=== PATIENT | female | born 1970 | race Caucasian/White ===

== ENCOUNTER 2025-01-25 08:50 | Outpatient (CLI) | payer OTHER, SELFPAY | END 2025-01-25 08:51 | disposition home or self-care (01) | LOC: NFLDUCREF 08:51 | PROVIDERS: Visit Provider Nurse Practitioner Family | DX: R21 Rash and other nonspecific skin eruption (principal); R53.83 Other fatigue | CPT/HCPCS: 86618 ==

== ENCOUNTER 2025-03-11 07:30 | Outpatient (RCR) | payer OTHER, SELFPAY | END 2025-07-09 23:59 | disposition home or self-care (01) | PROVIDERS: Visit Provider Nurse Practitioner | DX: M54.50 Low back pain, unspecified (principal); Z51.89 Encounter for other specified aftercare | CPT/HCPCS: 97110; 97140; 97162 ==

== ENCOUNTER 2025-07-19 09:45 | Emergency (ER) | payer OTHER, SELFPAY ==
--- OUTSIDE RECORDS SUMMARY | 2024-08-01 09:15 | XMS_ITS ---
Author Organization [facility] Address [address] [place] [address] Care Team Providers Care Assistant Grocery Name Role Phone None, No PCP Primary Care Provider Josi Gil [phone] REASON FOR VISIT HRT F/U Encounters Encounter Location Date Provider Diagnosis [facility] [address] [place] [address] 08/01/2024 Josi Arnold Plan Of Treatment No Information Progress Notes * Radha CASTANEDA DDOB: [birth year] (55 yo F)Acc No.[id number]:08/01/2024 Patient:?AURELIANO Radha Almendarez :?Josi Arnold, DODOB:1970???Age:54 Y???Sex: FemaleDate:08/01/2024Phone:[phone]:[address] [place], [place] [address]Pcp:No PCP None Subjective: * Chief Complaints: * 1 . HRT F/U. * Medical History: Objective: * Vitals: Assessment: Plan: * Treatment: * Images: Billing Information: * Visit Code: * Procedure Codes: * Electronic signature of Josi Arnold DO on 07/19/2025 at 09:46 AM CSTSign off status: Pending * Provider: Trudi Arnold DO Date: 0 08/01/2024 Generated for Printing/Faxing/eTransmitting on:?07/19/2025 09:46 AM FILTER CLOTH MAKER
--- OUTSIDE RECORDS SUMMARY | 2025-02-04 09:30 | XMS_ITS ---
Author Organization [facility] Address [address] [place] [address] Care Team Providers Care Insurance Premium Auditor Name Role Phone None, No PCP Primary Care Provider Josi Gil [phone] REASON FOR VISIT HRT Encounters Encounter Location Date Provider Diagnosis [facility] [address] [place] [address] 02/04/2025 Josi Arnold Plan Of Treatment No Information Progress Notes * Radha BEDOYA DDOB: [birth year] (55 yo F)Acc No.[id number]:02/04/2025 Patient:?Ivett BEDOYAh Erickson :?Josi Arnold, DODOB:1970???Age:54 Y???Sex: FemaleDate:02/04/2025Phone:[phone]:[address] [place] [address]Pcp:No PCP None Subjective: * Chief Complaints: * 1 . HRT. * Medical History: Objective: * Vitals: Assessment: Plan: * Treatment: * Images: Billing Information: * Visit Code: * Procedure Codes: * Electronic signature of Josi Arnold DO on 07/19/2025 at 09:47 AM CSTSign off status: Pending * Provider: Trudi Arnold DO Date: 0 02/04/2025 Generated for Printing/Faxing/eTransmitting on:?07/19/2025 09:47 AM TELEGRAPHIC TYPEWRITER OPERATOR
--- OUTSIDE RECORDS SUMMARY | 2025-03-25 09:30 | XMS_ITS ---
Author Organization [facility] Address [address] [place] [address] Care Team Providers Care Hospice Home Care Coordinator Name Role Phone None, No PCP Primary Care Provider Josi Gil [phone] Encounters Encounter Location Date Provider Diagnosis [facility] [address] [place] [address] 03/25/2025 Josi Arnold Plan Of Treatment No Information Progress Notes * Radha CASTANEDA DDOB: [birth year] (55 yo F)Acc No.[id number]:03/25/2025 Patient:?Ric CASTANEDAvero Almendarez :?Josi Arnold, DODOB:1970???Age:55 Y???Sex: FemaleDate:03/25/2025Phone:[phone]:[address] [place], [place] [address]Pcp:No PCP None Subjective: * Chief Complaints: * * Medical History: Objective: * Vitals: Assessment: Plan: * Treatment: * Images: Billing Information: * Visit Code: * Procedure Codes: * Electronic signature of Josi Arnold DO on 07/19/2025 at 09:46 AM CSTSign off status: Pending * Provider: Trudi Arnold DO Date: 0 03/25/2025 Generated for Printing/Faxing/eTransmitting on:?07/19/2025 09:46 AM CUSTODY OFFICER
--- OUTSIDE RECORDS SUMMARY | 2025-04-01 09:30 | XMS_ITS ---
Author Organization [facility] Address [address] [place] [address] Care Team Providers Care Furnace Filler Name Role Phone None, No PCP Primary Care Provider Josi Gil [phone] Encounters Encounter Location Date Provider Diagnosis [facility] [place] [address] [place] [address] 04/01/2025 Josi Arnold Plan Of Treatment No Information Progress Notes * Radha CASTANEDA DDOB: [birth year] (55 yo F)Acc No.[id number]:04/01/2025 Patient:?Ric CASTANEDAvero Almendarez :?Josi Arnold, DODOB:1970???Age:55 Y???Sex: FemaleDate:04/01/2025Phone:[phone]:[address] [place] [address]Pcp:No PCP None Subjective: * Chief Complaints: * * Medical History: Objective: * Vitals: Assessment: Plan: * Treatment: * Images: Billing Information: * Visit Code: * Procedure Codes: * Electronic signature of Josi Arnold DO on 07/19/2025 at 09:46 AM CSTSign off status: Pending * Provider: Trudi Arnold DO Date: 0 04/01/2025 Generated for Printing/Faxing/eTransmitting on:?07/19/2025 09:46 AM ELECTRIFICATION ADVISER
--- OUTSIDE RECORDS SUMMARY | 2025-07-19 09:46 | XMS_ITS | Patient Health Record ---
Author Organization [facility] Address [address] [place] [address] Care Team Providers Care Picker Tender Name Role Phone None, No PCP Primary Care Provider Unavailabl e Eul, Josi Unavailable [phone] Allergies Allergen (clinical drug ingredient) Drug/Non Drug Allergy documented on EMR Reaction Allergy Type Onset Date Status levofloxacin Levofloxacin Unknown Drug Allergy Active Results Component Value Reference Range Notes Testosterone, Total (IH) Reviewed date:04/08/2025 01:09:11 PM Interpretation: Performing Lab: Notes/Report: Access 2 ([id number]), [facility] - Lab Testo 40 0-75 ng/dL Sensitive Estradiol (IH) Reviewed date:07/28/2024 09:24:39 AM Interpretation: Performing Lab: Notes/Report: Access 2 ([id number]), [facility] - PvvSZCL71973 to 433 pg/mLTestosterone, Total (IH) Reviewed date:07/28/2024 09:24:39 AM Interpretation: Performing Lab: Notes/Report: Access 2 ([id number]), [facility] - RgjLzcos335-18 ng/dLFSH (IH) Reviewed date:07/28/2024 09:24:39 AM Interpretation: Performing Lab: Notes/Report: Access 2 ([id number]), [facility] - InruHVB07.21.8 to 22.5 mIU/mL Reason For Referral Reason depression with inte rmittent suicidal ideation Diagnosis 1 Depression (F32.9) Referral Organization [facility] Referring Provider First Name Josi Referring Provider Last Name Eul Referring Provider Speciality Obstetrici an and wash driller Referred Provider Specialty Psychiatry Referral Priority Routine Medications Medication SIG (Take, Route, Frequency, Duration) Notes Start Date End Date Status FLUoxetine HCl 20 MG Oral; Duration: 90 Days ActiveFish OilNot-TakingTestosterone1/2 4mg trocheActiveEstradiol 1 MG0.5 tablet Orally twice a day; Duration: 90 days4068FtglovDmupuwb8he changing every 4 monthsActive Social History Tobacco Use: Social History Observation Description Date Details (start date - stop date) Never Smoker NA - NA Tobacco Control (Standard) Question Answer Notes Tobacco use: Nonsmoker Problems Problem Type SNOMED Code ICD Code Onset Dates Problem Status W/U Status Risk Notes Problem Menopause (094899468) Menopausal and fema le climacteric states (N95.1) ActiveconfirmedProblemDepression (999518583)Depression (F32.9)Activeconfirmed ProblemEndometriosis (931949666)Endometriosis (N80.9)ActiveconfirmedProblem Menopausal symptom (56135796)Menopausal symptoms (N95.1)ActiveconfirmedProblem Menopausal and postmenopausal disorder (N95.9)ActiveconfirmedProblemBlood chemistry abnormal (956183320)Low testosterone level in female (R79.89)Active confirmed Vital Signs Blood pressure diastolic 70 mm Hg 04/17/2025 Txjeia41 in04/17/2025lood pressure jqztzqsy162 mm Hg04/17/20251546Elhzlf660.6 lbs 04/17/2025BMI22.06 kg/m204/17/2025 Encounters Encounter Location Date Provider Diagnosis [address] [address] 02/16/2025 Josi Eul Menopausal symptoms N95.1 and Low testosterone level in female R79.[address] [id number] 04/02/2025 Josi Eul Menopausal and femal e climacteric states N95.[address] [id number] 07/24/2024 Josi Eul Menopausal and postmenopausal disorder N95.9 and Abnormal level of female sex hormones R87.[address] [place] [address] 08/06/2024 Josi Eul Menopausal symptoms N95.1 [facility] [address] [place] [address] 04/17/2025 Josi Eul Menopausal symptoms N95.1 ; Low testosterone level in female R79.89 and Depression F32.9 [facility] [address] [place] [address] 02/11/2025 Josi Eul [facility] [address] [place] [address] 5[facility]a [facility] [address] [place] [address]/5Alexa EulMinnesPage [facility] [address] [place] [address]/5Alexa EulMinHospital Corporation of America Apple [address] [place] [address]/5Alexa Eul [facility] [place] [address] 11/12/2024lexa [facility]uinCritical [facility] hospital[address] [place] [address]/5Alexa Eul Assessments Encounter Date Diagnosis (ICD Code) Assessment Notes Treatment Notes Treatment Clinical Notes Section Notes 08/06/2024 Menopausal symptoms (ICD-10 - N9 5.1) Doing very well with therapy Will refill testosterone for 6 months, do labs and follow up for continued T therapy at that time 04/02/2025Menopausal and female climacteric states (ICD-10 - N95.1)04/17/2025 Menopausal symptoms (ICD-10 - N95.1)04/17/2025Low testosterone level in female (ICD-10 - R79.89)Increase testosterone carin to 4 mg daily - Continue estrogen ring, replacing every 3 months instead of 4 to avoid potential hormone surges - Monitor for recurrence of symptoms with next estrogen ring change - If symptoms recur, consider switching to vaginal estrogen cream for more consistent delivery - Continue Prozac 20 mg daily for mood stabilization - Renew testosterone prescription at [facility] - Follow up in 6 months for lab draw to monitor testosterone therapy - Patient educated on potential need for psychiatric evaluation if symptoms persist or scxhgi2602/16/2025Menopausal symptoms (ICD-10 - N95.1) Doing well with estradiol 1mg, continue therapy NO uterus, does not need progesterone 02/16/2025Low testosterone level in female (ICD-10 - R79.89) Will try testosterone troches instead, in case she was reacting to a component of the cream substrate Will order 4mg troches, with instructions to start with 1/2 a acrin for a 2mg dose Rx sent to [facility] Recheck lab in 6 weeks with 1 week follow up after 30 minutes spent on chart review, in face to face time with patient, documentation of above and coordination of care. 07/24/2024Menopausal and postmenopausal disorder (ICD-10 - N95.9)07/24/2024 Abnormal level of female sex hormones (ICD-10 - R87.1)04/17/2025Depression (ICD- 10 - F32.9)- Prescribe short-term Ativan for acute anxiety episodes if needed - Advise patient to call if experiencing onset of anxiety symptoms - Recommend establishing care with a psychiatrist for ongoing management of acute anxiety episodes - Provide referral to [facility] for psychiatric syneqellgj35/19/2025 Other Thank you for meeting with me today. Below is a summary of the items we discussed and the next steps in your care plan. 1. Increase testosterone carin to 4 mg daily and continue taking Prozac 20 mg daily. Do not stop or change testosterone dose when changing estrogen ring. 2. Replace estrogen ring every 3 months instead of 4 months. Consider switching to vaginal estrogencream if symptoms persist with ring changes. 3. A referral will be sent to [facility] for a psychiatrist. Call when they contact you to find a location close to you. 4. Return in 6 months for lab work to check testosterone levels. 5. If anxiety symptoms return and you don't have Ativan, call the office. Best Regards, Josi Arnold DO 08/06/2024OtherPt expressed that prior to starting therapy she was experiencing suicidal thoughts. She is feeling much better now. Discussed with her that at any time if she wants to make an appointment to further discuss her mental health I am here for her, and to never be ashamed or embarassed to seek help. Plan Of Treatment No Information Insurance Providers Payer Name Payer Address Payer Phone Subscriber Number Group Number Insured Name Patient Relationship to Insured Coverage Start Date Coverage End Date Savannah Arias (Ins. Bill) Claims Departme [address] [place] [address] [id number] Wang Castanedaelf - patient is the insured Medical (General) History Medical History History ICD Code Chicken Pox Surgical History Surgery Date(Month/Year) Tonsillectomy Breast Augmentation 2xUPJ RepairKidney Stone HndxcjuNjxxhmclsdhl5531Fpojiislkvlq 2012
--- OUTSIDE RECORDS SUMMARY | 2025-07-19 09:47 | XMS_ITS | Clinical Summary ---
Author Organization [facility] Address [address] [address] Phone Care Team Providers Care Photographic Reproduction Technician Name Role Phone Unavailable Primary Care Provider Unavailabl e Medications MedicationSigDispense QuantityRefillsLast FilledStart DateEnd DateStatus hydrOXYzine pamoate (Vistaril) 25 MG capsule Take 1-2 Capsules by mouth three times a day as needed for Itching or Anxiety. 20 Capsule 5Active Social History Tobacco UseTypesPacks/DayYears UsedDateSmoking Tobacco: Never AssessedEH IP Custom IPVAnswerDate RecordedDo you feel UNSAFE in any of your personal relationships with your family members or any other acquaintances?No03/22/2025 CommentsUnknownSex and Gender InformationValueDate RecordedSex Assigned at BirthNot on fileLegal IlfLardlc72/24/2025 8:06 AM CDTGender IdentityNot on fileSexual OrientationNot on file Last Filed Vital Signs Vital SignReadingTime TakenCommentsBlood Hdpowwyz651/6808 10:03 AM CDT Nlayl047603/22/2025 10:03 AM EEQKhmglbiaufd94.8 ??C (98.2 ??F)03/22/2025 10:03 AM CDTRespiratory Qblo743103/22/2025 10:03 AM CDTOxygen Kwiqvlyyxz47%03/22/2025 10:03 AM CDTInhaled Oxygen Concentration--Weight--Height--Body Mass Index-- Plan of Treatment Health MaintenanceDue DateLast DoneCommentsCT Swkcuoazgcth1971Cervical Cancer Fyreaodpt53/09/8989Yuvqmytzf23/09/6817Edrwucxamum1971Last pap w/ HPV Hpxxqre49 1971Last pap w/o HPV Iaflwar67 1971MAMMO,WOUTNR27 1970 Zjuujzbllbtfu1971Hepatitis B Vaccine (Standing Order) (1 of 3 - 19+ 3-dose series)1990PERTUSSIS (Standing Order)1990TETANUS (Standing Order) 1990Pneumococcal Vaccine: 50+ yrs (Standing Order) (1 of 1 - PCV) 2021hingrix (Zoster recombinant) vaccine (Standing Order) (1 of 2) 2021OVID-19 Vaccine (1 - 2024- season)2025Influenza Vaccine Seasonal (Standing Order) (#1)5Colorectal Cancer Screening (consider Cologuard where access is limited)03/22/2026FIT/FOBTHPV Vaccine (Standing Order) (No Doses Required)Completed Procedures Procedure NamePriorityDate/TimeAssociated DiagnosisCommentsFECAL OCCULT BLOOD, IMMUNOASSAY (GI BLEED)STAT03/22/2025 9:06 AM CDT from Last 3 Months or Most Recently Relevant to Health Maintenance Results * FECAL OCCULT BLOOD, IMMUNOASSAY (GI BLEED) (03/22/2025 9:06 AM CDT)Component ValueRef RangeTest MethodAnalysis TimePerformed AtPathologist SignatureFecal Occult Blood, WebxtkowkpkRbmxxhvxCgjkntzo53/24/2025 9:19 AM CDTECASA COLINA HOSPITAL FOR RE[facility]AB MEDICINE LABORATORYSpecimen (Source)Anatomical Location / LateralityCollection Method / VolumeCollection TimeReceived TimeStoolFECES / UnknownNon-blood collection / Xuvxzlh2903/22/2025 9:06 AM CDT03/22/2025 9:11 AM CDT Narrative Authorizing ProviderResult TypeResult StatusAlltanna DIAZ URINE ORDERABLESFinal ResultPerforming OrganizationAddressCity/State/[place] [address], [facility] from Last 3 Months or Most Recently Relevant to Health Maintenance Insurance
--- OUTSIDE RECORDS SUMMARY | 2025-07-19 09:47 | XMS_ITS | Clinical Summary ---
Author Organization [facility] Address [address] [place] [address] Care Team Providers Care Reducing Machine Operator Name Role Phone Elsewhere, Pcp Primary Care Provider Unavailabl e Source Comments Patient records contain information from all sites at [facility]. For routine questions regarding patient records, call [phone] during business hours, M-F 8:00 AM - 5:00 PM Central Time. Record requests for emergency care only can be directed to [phone] at any time.[facility] Allergies Active AllergyReactionsCriticalityNoted DateCommentsLevofloxacinEdema (Reselect Reaction)06/11/2018 Medications MedicationSigDispense QuantityRefillsLast FilledStart DateEnd DateStatus estradioL (ESTRING) 2 mg (7.5 mcg /24 hour) vaginal ring 03/11/2015ctive azelaic acid (Finacea) 15 % gel 1 Application.5Active Immunizations ImmunizationAdministration DatesNext DueInfluenza, Injectable, Quadrivalent 07/29/2018RZV (SHINGRIX)07/13/2021,05/04/20218329PLNY-MCX-2 (COVID-19) - PFIZER (Discontinued)(12 years or older)11/19/2020,10/30/2020Td (Adult), adsorbed 12/08/1988influenza vaccine quad (FLUZONE/FLUARIX) (6 months and older)(PF) 06/03/2021,05/18/2020,05/06/2019 Social History Tobacco UseTypesPacks/DayYears UsedDateSmoking Tobacco: FormerSmokeless Tobacco: Never Tobacco Cessation:Counseling Given: Not Answered CommentsNoSex and Gender InformationValueDate RecordedSex Assigned at BirthNot on fileLegal UfiJadlaw33/14/2017 9:53 AM CDTGender IdentityNot on file Sexual OrientationNot on file Last Filed Vital Signs Vital SignReadingTime TakenCommentsBlood Tnfioube470/6904 8:33 AM CDT Owkyd2582 8:33 AM IJGKfkamyiazcv36.1 ??C (96.9 ??F)10/31/2024 8:33 AM CDTRespiratory Zust460603/14/2021 2:04 PM CDTOxygen Xgrszrorwn31%02/27/2023 8:41 AM CDTInhaled Oxygen Concentration--Hljzdw55.6 kg (129 lb 3 oz)10/31/2024 8:33 AM JGMVsucjr946 cm (5' 5.35)02/27/2023 8:41 AM CDTBody Mass Index21.27 02/27/2023 8:41 AM CDT Plan of Treatment Health MaintenanceDue DateLast DoneCommentsCT Boitsvssssnp1971 Cervical/Vaginal Cancer Hbizpyaqa37/09/6764Qzwpnnadk45/09/4743XII01 1970HIV Phfvwkwyh1971Hepatitis C Yoenwlrnq36/09/5986Zkyqwgwuj1971Hepatitis B Vaccines (1 of 3 - 19+ 3-dose series)1990Pneumococcal vaccine (50+ years) (1 of 1 - PCV)2021epression Screening (Annual PHQ-2)5COVID-19 Vaccine ( - season)501/05/2022, 11/19/2020, 10/30/2020 Influenza Vaccine (#1)501/12/2022, 06/03/2021, 05/18/2020, Additional history existsFasting Glucose for Diabetes Mfremidmr96Lipid (Cholesterol) Txxiwkyoy51/3841Vzgsjgdmyvf98 Colorectal Cancer Aaamzydui74/28/2032DTaP,Tdap,and Td Vaccines (3 - Td or Tdap) /12/2022, 12/08/1988Zoster EhfhcmajGrujopfeo64/15/2021, 05/04/2021 IPV VaccinesAged OutNo longer eligible based on patient's age to complete this topic Insurance Care Teams Team MemberRelationshipSpecialtyStart DateEnd Date Elsewhere, Pcp PCP - GeneralFamily Medicine03/13/18
--- OUTSIDE RECORDS SUMMARY | 2025-07-19 09:47 | XMS_ITS | Clinical Summary ---
Author Organization [employer] [facility] Address [address] [place] [id number] Care Team Providers Care Supervisor Power Reactor Name Role Phone BreOctober Primary Care Provider [phone] Allergies Active AllergyReactionsCriticalityNoted IzyeOtkxprizVxdvspastilnPdtol89/13/2018 Medications MedicationSigDispense QuantityRefillsLast FilledStart DateEnd DateStatus acetaZOLAMIDE (DIAMOX) 125 mg tablet Indications:Mountain sickness, initial encounterTake 125 mg by mouth two times daily. Begin medication the day before ascent and continue while at the higher elevation. May discontinue on descent to lower altitude 30 Tablet 02/27/2024ctive Estradiol Vaginal (Estring) 2 mg (7.5 mcg /24 hour) vaginal ring Indications:Vaginal atrophyInsert 1 Ring into the vagina every 3 months. 1 Each ctive Active Problems ProblemNoted DateDiagnosed DateNight yrhkil0909/12/2023Hot iaqbukp8609/12/2023 Vaginal ysjjtmg9309/12/20231489Piqekzc87/14/2024Family history of cancer in sister 09/12/2023 Resolved Problems ProblemNoted DateDiagnosed DateResolved DateUnspecified adjustment reaction Immunizations ImmunizationAdministration DatesNext DueInfluenza, ZSC61908/04/2022,06/03/2021, 05/18/2020,05/06/2019Influejulián, IIV4 (=>6mos) MDV1Td (Age >=7 Years) 12/08/1988Tdap08/04/2022,02/14/2013Zoster (Shingrix-RZV, recombinant)07/13/2021, 05/04/2021 Family History Medical HistoryRelationNameCommentsAlcoholismBrotherDepressionBrotherAlcoholism FatherNo Known ProblemsMotherNo Known ProblemsSonAnesthesia Malignant HyperthermiaNo Family HistoryCancer-breastNo Family HistoryCancer-ovarianNo Family HistoryRelationNameStatusCommentsBrotherAliveFatherAlivenot in contact MotherAliveSisterAliveSonAlive Social History Tobacco UseTypesPacks/DayYears UsedDateSmoking Tobacco: OoiiocYqshwiflsl6Txfv: 07/30/1991Smokeless Tobacco: Never Tobacco Cessation:Counseling Given: Yes Alcohol UseStandard Drinks/WeekCommentsYes0 (1 standard drink = 0.6 oz pure alcohol)daily-12 drinks per weekPHQ-2AnswerDate RecordedPHQ-2 TOTAL SCORE0 08/04/2022Social ConnectionsAnswerDate RecordedDo you often feel lonely or isolated from those around you?Financial Resource StrainAnswerDate RecordedDifficulty of Paying Living Cxyendql242ifficulty of Paying Living ExpensesNot on file09/10/2023Food InsecurityAnswerDate RecordedDo you worry your food will run out before you are able to buy more? 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 on fileNot on fileNot on file Last Filed Vital Signs Vital SignReadingTime TakenCommentsBlood Dwauwzdi43/6907 11:02 AM CDT Cxxrq7287 11:02 AM KTLMoqjwdrblwg73.6 ??C (97.9 ??F)09/12/2023 2:48 PM CSTRespiratory Jvef633204/04/2021 12:03 PM CDTOxygen Qaehpzmgmj25%02/07/2024 11:02 AM CDTInhaled Oxygen Concentration--Ajpvlx80.8 kg (125 lb 3.2 oz)02/07/2024 11:02 AM IUEVnisfg473 cm (5' 5.35)02/07/2024 11:02 AM CDTBody Mass Index20.61 02/07/2024 11:02 AM CDT Plan of Treatment Health MaintenanceDue DateLast DoneCommentsHIV for age 15-Hepatitis C screening for age 18-Hepatitis B series for 19+ (1 of 3 - 19+ 3- dose series)1990Pneumococcal series for age 50+ (1 of 1 - PCV)2021 Depression screening for age 12+401/12/2022, 02/18/2021, 02/16/2021, Additional history existsBMI (ht and wt on same day) for age 18+02/06/2025 02/07/2024, 09/12/2023, 08/04/2022, Additional history existsCOVID-19 vaccine series (2024- season), 11/19/2020, 10/30/2020Influenza Vaccine (#1)/12/2022, 06/03/2021, 05/18/2020, Additional history existsMammogram for age 45-/02/2025, 10/05/2023, 04/29/2019 (Completed outside of [facility]), Additional history existsLipids for age 45-75 /, 04/29/2018 (Completed outside of [facility])Colonoscopy through age 750Tetanus /12/2022, 02/14/2013, 12/08/1988RSV vaccine for adults or (1 - 1-dose 75+ series)2046Zoster (shingles) series for age 50+Qppiwdmcd28/15/2021, 05/04/2021 Procedures Procedure NamePriorityDate/TimeAssociated DiagnosisCommentsXR MAMMO RUTH BILAT SCREEN WYZBUMFQkiuknx29/08/2025 9:35 AM CDT Visit for screening mammogram LIPID PANEL W REFLEX MEASURED SCGVfzegfu30/14/2024 3:40 PM TIPPING MACHINE OPERATOR AUTOMATIC Lipid screening SCAN-DYKNJMTSCJL69/28/2022 12:00 AM TIPPING MACHINE OPERATOR AUTOMATIC from Last 3 Months or Most Recently Relevant to Health Maintenance Results * XR MAMMO RUTH BILAT SCREEN IMPLANT (04/06/2025 9:35 AM CDT)Anatomical Region LateralityModalityBREASTS, Breast Left, Breast RightBilateralMammography Specimen (Source)Anatomical Location / LateralityCollection Method / Volume Collection TimeReceived Time Impressions 04/06/2025 3:52 PM CDT There is no radiographic evidence for malignancy. Recommend annual mammograms. MAMMOGRAM ASSESSMENT: ??ACR 2 Benign PATIENTS: You will also receive a letter with your examination results in an easy to read format. ??If you have questions about your results, please contact your referring provider. Narrative 04/06/2025 3:52 PM CDT For Patients: As a result of the 21st Century Cures Act, medical imaging exams and procedure reports are released immediately into your electronic medical record. You may view this report before your referring provider. If you have questions, please contact your health care provider. XR MAMMO RUTH BILAT SCREEN IMPLANT [[id number]] CLINICAL HISTORY: ??This is an asymptomatic 55 y.o. patient. INDICATION FOR EXAM: Mammogram Screening. TECHNIQUE: CC and MLO views were obtained. Implant displacement views were obtained. This study was evaluated with the assistance of Computer-Aided Detection. Breast Tomosynthesis was used in interpretation. COMPARISON FILMS: Yes 10/05/23 [facility] ?? FINDINGS: ??The breasts are heterogeneously dense, which may obscure small masses. ??No suspicious masses or microcalcifications. ??There are breast implant(s) present.. Authorizing ProviderResult TypeResult StatusApril FitloffMAMMOFinal Result * (ABNORMAL) LIPID PANEL W REFLEX MEASURED LDL (09/12/2023 3:40 PM TIPPING MACHINE OPERATOR AUTOMATIC)Component ValueRef RangeTest MethodAnalysis TimePerformed AtPathologist Signature CHOLESTEROL,BSBES824(H)100 - 199 mg/dL09/13/2023 2:53 PM [facility]-CENTRAL LABORATORYComment: Cholesterol, Total Reference Ranges Desirable <200 mg/dL Borderline 200-239 mg/dL High >=240 mg/dL EZQBLCVRQRSXZ61<150 mg/dL09/13/2023 2:53 PM [facility]-CENTRAL LABORATORYHDL SZBVKXJNMQY202>40 mg/dL09/13/2023 2:53 PM [facility]-CENTRAL LABORATORYNON-HDL MTAMIXYWGYV319<145 mg/dl09/13/2023 2:53 PM [facility]-CENTRAL LABORATORYCHOL/HDL RATIO2.08<4.50009/13/2023 2:53 PM CSTMETHODIST [facility]-CENTRAL LABORATORYLDL AXEIHPQITWY49<=130 mg/dL09/13/2023 2:53 PM [facility] LABORATORYVLDL EOHDIXZAQOT89<=30 mg/dL09/13/2023 2:53 PM [facility]-CENTRAL LABORATORYPROVIDER ORDERED NPZAXNPOEMKY98/15/2024 2:53 PM [facility]-CENTRAL LABORATORYSpecimen (Source)Anatomical Location / Laterality Collection Method / VolumeCollection TimeReceived TimeBloodBLOOD SPECIMEN / UnknownVenipuncture / Qtadqld6409/12/2023 3:40 PM CST09/12/2023 3:41 PM TIPPING MACHINE OPERATOR AUTOMATIC Narrative Authorizing ProviderResult TypeResult StatusBelle Garcia MDCHEMISTRYFinal ResultPerforming OrganizationAddressCity/State/ZIP CodePhone Number [facility] [address] [place] [address], * SCAN-COLONOSCOPY (08/26/2021 12:00 AM TIPPING MACHINE OPERATOR AUTOMATIC) Narrative Authorizing ProviderResult TypeResult StatusScannerOTHERFinal Result from Last 3 Months or Most Recently Relevant to Health Maintenance Insurance * Guarantor: [employer] AV[employer]ATION ADMINAccount TypeRelation to PatientDate of PhoneBilling AddressC[facility] [employer] [facility] [address] [place] [address] Advance Directives TypeDate RecordedPatient RepresentativeExplanationHealthcare Cglobiveo66/1/2010 11/30/2008Healthcare Directive09/24/2008health care directive, [facility], 09/24/08 Care Teams Team MemberRelationshipSpecialtyStart DateEnd October [address] [place] [address] PCP - General02/16/21
[2025-07-19 09:49] VITALS: BP 121/79; PULSE 66; RESP 22; TEMP 36.8; O2SAT 98; BMI 21.6
[2025-07-19 10:03] LABS: Appearance Urine Slightly Cloudy (Clear)
--- NOTE | 2025-07-19 10:27 | CRLHL7_ITS ---
For Patients: As a result of the Century Cures Act, medical imaging exams and procedure reports are released immediately into your electronic medical record. You may view this report before your referring provider. If you have questions, please contact your health care provider. INDICATION: Left flank pain TECHNIQUE: CT abdomen and pelvis without contrast. COMPARISON: CT abdomen pelvis 02/10/2013. FINDINGS: Lower chest: Partially visualized right breast implant. Liver: Unremarkable. Gallbladder and bile ducts: No stones or inflammation. No biliary dilatation. Pancreas: Unremarkable. Spleen: Unremarkable. Adrenal glands: Unremarkable. Kidneys: Bilateral nonobstructing nephroliths. No hydronephrosis. This is 0.5 x 0.4 centimeter calcification in the region of the left UVJ (2), but is difficult to localize to the ureter. GI tract: No obstruction. No evidence of significant bowel inflammation. Appendix is not visualized, with clips at the cecum likely related to prior appendectomy. Vasculature: Abdominal aorta is normal in caliber. Lymph nodes: No lymphadenopathy. Peritoneum/Abdominal Wall: Unremarkable. No sign of mass or infiltration. No free air or significant free fluid. Pelvis: Hysterectomy. Bones: Unremarkable for age. IMPRESSION: There is a 0.5 x 0.4 centimeter calcification in the region of the left UVJ, that is difficult to definitely localize to the ureter. The was a smaller calcification in this region in 2012, making pelvic phlebolith a possibility. No hydronephrosis or hydroureter. Please note that all CT scans at this facility use dose modulation, iterative reconstruction, and/or weight-based dosing when appropriate to reduce radiation dose to as low as reasonably achievable. Dictated by Ghazal Jean MD @ 07/19/2025 11:03:02 AM (Electronically Signed)
[2025-07-19 11:17] LABS: Hematocrit* 40.0 % (33.0-51.0); Hemoglobin* 13.2 gm/dL (12.0-16.0); Immature Granulocytes Abs Auto 0.03 K/uL (0.00-0.30); Immature Granulocytes Pct Auto 0.6 %; Lymphocytes Absolute Auto 1.92 K/uL (0.90-2.90); Mean Corpuscular HGB Conc 33 gm/dL (32-36); Mean Corpuscular Hemoglobin 32 pg (26-34); Mean Corpuscular Volume 96 fL (80-100); RDW Coefficient of Variation % 12.8 % (11.5-15.5); Red Blood Count* 4.15 m/uL (4.00-5.20); Slide Review Reflex No; White Blood Count* 5.18 K/uL (4.50-11.00)
[2025-07-19 11:30] LABS: Albumin* 4.2 g/dL (3.3-5.0); Chloride* 105 mmol/L (96-114); Potassium* 5.0 mmol/L (3.6-5.1); Sodium* 138 mmol/L (135-149)
[2025-07-19 11:32] LABS: Alanine Aminotransferase* 16 U/L (4-35); Anion Gap 5 mEq/L (7-15); Aspartate Amino Transferase* 26 U/L (12-35); Blood Urea Nitrogen* 15 mg/dL (7-30); Carbon Dioxide* 28 mmol/L (20-32); Creatinine* 0.7 mg/dL (0.5-1.5); Est. Creatinine Clearance* 82.67; Estimated Glomerular Filt Rate 103 ml/min
[2025-07-19 11:33] LABS: Alkaline Phosphatase* 48 U/L (40-150); Bilirubin Total* 0.3 mg/dL (0.1-1.5); Calcium* 9.2 mg/dL (8.4-10.6); Glucose* 103 mg/dL (60-115); Total Protein* 6.7 g/dL (6.0-8.3)
--- NOTE | 2025-07-19 12:04 | ED.ABDPAIN ---
HPI - Abdominal Pain General Chief Complaint: Abdominal Pain Stated Complaint: L side pain Time Seen by Provider: 07/19/25 10:21 History of Present Illness HPI narrative: Patient presents with pain in left flank which is been intermittent for last several weeks. Worse today. She has had no fevers no chills no night sweats she notices her urine is somewhat dusky. She has history of kidney stones in the distant past. He has had some mild nausea but no vomiting. No fevers no chills no night sweats no urinary frequency. No other related symptoms. Related Data Home Medications ?Medication ?Instructions ?Recorded ?Confirmed estradiol 1 mg tablet 1 mg PO DAILY 01/25/25 07/19/25 estradiol 2 mg (7.5 mcg/24 hour) 1 vag ring vaginal [id number] 01/25/25 01/25/25 vaginal ring (Estring) fluoxetine 20 mg capsule 20 mg PO DAILY 07/19/25 07/19/25 testosterone 07/19/25 Previous Rx's ?Medication ?Instructions ?Recorded ketorolac 10 mg tablet 10 mg PO Q8H PRN pain 2 days #20 07/19/25 tabs tamsulosin 0.4 mg capsule 0.4 mg PO DAILY #10 caps 07/19/25 Allergies Allergy/AdvReac Type Severity Reaction Status Date / Time levofloxacin Allergy Verified 01/25/25 08:33 Review of Systems Status of ROS Reports: 10 or more systems reviewed and unremarkable except as noted in History and below [facility] Social History Smoking Status: Never smoker How often do you have a drink containing alcohol: never AUDIT-C Alcohol total score: 0 Non-prescribed substance use: denies use Exam Narrative: Exam Narrative: EXAM GENERAL: Patient appears comfortable and well. EYES: No scleral icterus. LYMPH: No supraclavicular or cervical lymphadenopathy. SKIN: Visible skin seen during exam normal or with benign process only. EXT: No dependent lower extremity pedal edema. HEART: Regular rate and rhythm with no murmurs, rubs, or gallops. LUNGS: Clear to auscultation bilaterally with no crackles or wheezes. ABD: Soft, non tender, non distended. PSYCH: Good eye contact, speech is not pressured. Const: Vital Signs, click to edit/add: Vital Signs - 24 hr 12/21/25 09:49 Temperature 98.2 F Pulse Rate [Pulse Oximeter] 66 Respiratory Rate 22 Blood Pressure [Ri ght Upper Arm] 121/79 Pulse Oximetry 98 Oxygen Delivery Me thod Room Air Course Course ED Course: Patient presents with left flank pain and has a 5 x 4 mm stone in the left ureter near the UVJ. The patient responded to IV hydration. She did receive 30 mg of Toradol. She would like to go home with outpatient follow-up with Urology. She is treated at home with Flomax plenty of rest plenty of fluids as well as Toradol as needed orally for pain control. She will follow-up with [facility] [place] this coming week. Vital Signs Vital signs: Initial Vital Signs Temperature 98.2 F 07/19/25 09:49 Temperature Source Temporal Artery Scan 07/19/25 09:49 Pulse Rate 66 07/19/25 09:49 Respiratory Rate 22 07/19/25 09:49 Blood Pressure 121/79 07/19/25 09:49 Blood Pressure Mean 93 07/19/25 09:49 Blood Pressure Position Sitting 07/19/25 09:49 Pulse Oximetry 98 07/19/25 09:49 Oxygen Delivery Method Room Air 07/19/25 09:49 Vital Signs Temperature 98.2 F 07/19/25 09:49 Pulse Rate 66 07/19/25 09:49 Respiratory Rate 22 07/19/25 09:49 Blood Pressure 121/79 07/19/25 09:49 Pulse Oximetry 98 07/19/25 09:49 Oxygen Delivery Method Room Air 07/19/25 09:49 Temperature 98.2 F 07/19/25 09:49 Pulse Rate 66 07/19/25 09:49 Respiratory Rate 22 07/19/25 09:49 Blood Pressure 121/79 07/19/25 09:49 Pulse Oximetry 98 07/19/25 09:49 Oxygen Delivery Method Room Air 07/19/25 09:49 Medications Administered Medications: Discontinued Medications Generic Name Dose Route Start Last Admin Trade Name Freq PRN Reason Stop Dose Admin Hydromorphone HCl 0.5 mg 07/19/25 10:30 07/19/25 11:12 Hydromorphone 0.5 Mg/0.5 Ml Inj IVP 07/19/25 10:31 Not Given ONCE ONE Sodium Chloride 1,000 mls @ 1,000 mls/hr 07/19/25 10:30 07/19/25 11:08 0.9 % Sodium Chloride 1000 Ml IV 07/19/25 11:29 1,000 mls/hr .Q1H JODEE Administration MDM - Abdominal Pain Lab Data Labs: Lab Results 07/19/25 07/19/25 Range/Units 11:05 Unknown WBC 5.18 (4.50-11.00) K/uL RBC 4.15 (4.00-5.20) m/uL Hgb 13.2 (12.0-16.0) gm/dL Hct 40.0 (33.0-51.0) % MCV 96 (80-100) fL MCH 32 (26-34) pg MCHC 33 (32-36) gm/dL RDW Coeff of [place] 12.8 (11.5-15.5) % Plt Count 194 (140-440) K/uL Neut % (Auto) 50.7 (42.0-72.0) % Lymph % (Auto) 37.1 (20-44) % [place] % (Auto) 9.5 (0.0-11.0) % Eos % (Auto) 1.7 (0.0-7.0) % Baso % (Auto) 0.4 (0.0-3.0) % Neut # (Auto) 2.63 (1.7-7.0) K/uL Lymph # (Auto) 1.92 (0.90-2.90) K/uL [place] # (Auto) 0.50 (0.00-0.90) K/UL Eos # (Auto) 0.09 (0.00-0.50) K/uL Baso # (Auto) 0.02 (0.00-0.30) K/uL Abs Immat Gran (auto) 0.03 (0.00-0.30) K/uL Imm/Tot Granulo (auto) 0.6 % Sodium 138 (135-149) mmol/L Potassium 5.0 (3.6-5.1) mmol/L Chloride 105 (96-114) mmol/L Carbon Dioxide 28 (20-32) mmol/L Anion Gap 5 L (7-15) mEq/L BUN 15 (7-30) mg/dL Creatinine 0.7 (0.5-1.5) mg/dL Estimated Creat Clear 82.67 Estimated GFR 103 ml/min Glucose 103 (60-115) mg/dL Calcium 9.2 (8.4-10.6) mg/dL Total Bilirubin 0.3 (0.1-1.5) mg/dL AST 26 (12-35) U/L ALT 16 (4-35) U/L Alkaline Phosphatase 48 (40-150) U/L Total Protein 6.7 (6.0-8.3) g/dL Albumin 4.2 (3.3-5.0) g/dL Urine Color Yellow (Yellow) Urine Appearance Slightly Cloudy A (Clear) Urine pH 5.5 (5.0-8.5) Ur Specific [place] 1.020 (1.000-1.030) Urine Protein Negative (Negative) Urine Glucose (UA) Negative (Negative) Urine Ketones Negative (Negative) Urine Blood 3+ A (Negative) Urine Nitrite Negative (Negative) Urine Bilirubin Negative (Negative) Urine Urobilinogen 0.2 (0.2-1.0) Ur Leukocyte Esterase Negative (Negative) Urine RBC >100 A (0-2) Urine WBC 2-5 (0-5) Ur Squamous Epith Cells Moderate A (None-Few) Urine Bacteria Moderate A (None) Discharge Plan Discharge Clinical Impression: Kidney stone Patient Disposition: Home, Self-Care Condition: Stable Instructions: Kidney Stones (ED) Additional Instructions: Plenty of fluids Rest Oral Toradol as directed Flomax as directed Follow-up with urology as discussed. Activity Level: No Restrictions Discharge Diet: Regular Prescriptions: New ketorolac 10 mg tablet 10 mg PO Q8H PRN (Reason: pain) 2 Days Qty: 20 0RF tamsulosin 0.4 mg capsule 0.4 mg PO DAILY Qty: 10 3RF No Action estradiol 1 mg tablet 1 mg PO DAILY Estring 2 mg (7.5 mcg /24 hour) ring 1 vag ring vaginal [id number] fluoxetine 20 mg capsule 20 mg PO DAILY testosterone Follow Up/Referrals: Provider,Not a Local [Primary Care Provider, Family Practice] Stand Alone Forms: MyHealth Info Instructions
[2025-07-19 12:11] VITALS: BP 129/75; PULSE 50; RESP 16; O2SAT 99
== END 2025-07-19 12:45 | disposition home or self-care (01) ==
PROVIDERS: Emergency Provider Internal Medicine
DX: N20.0 Calculus of kidney (principal); Z87.442 Personal history of urinary calculi
CPT/HCPCS: 36415; 74176; 80053; 81001; 85025; 87086; 96361; 96374; 96375; 99283; 99284; 99285; J1885; J7030